=== PATIENT | male | born 1950 | race Caucasian/White ===

== ENCOUNTER 2021-06-23 12:11 | Emergency (ER) | payer OTHER ==
[~2021-06-23] VITALS: Ht 177.8 cm; Wt 115.2 kg
[~2021-06-23 12:11] MED LIST: ACCUNEB SO1.25 MG/1 INH; ASPIR 8181 MG PO; AVODART0.5 MG PO; CARVEDILOL6.25 M1 PO; CHILDREN'S NA10.8 ML NARES; CO Q-10100 MG PO; COZAAR 50 MG TA50 M1 PO; CYANOCOBAL1000 MCG/1 IM; FAMOTIDINE 20 M20 MG PO; FLONASE 0.05%50 MCG NARES; FOLIC ACID1 MG PO; IMDUR 30 MG TAB30 M1 PO; KETOCONAZOLE 2%30 GM TOP; LISINOPRIL5 MG PO; LIVALO2 MG PO; MILK OF MA400 MG/5 M PO; NITROGLYCERIN0.4 MG SUBLING; NORCO 10-325 T1 EACH PO; OMEPRAZOLE40 MG PO; PREVIDENT56 GM PO; PROAIR HFA8.5 GM; REFRESH OPTIVE1 EACH OP; REQUIP1 MG PO; SUPER THERAVIT1 EACH PO; SYMBICORT160 MCG/4. INH; TRAZODONE HCL100 MG PO; TYLENOL325 MG PO; VITAMIN B12-FO1 EAC1 PO; VITAMIN D31250 MC1 PO; XARELTO20 MG PO; ZETIA10 MG PO
[2021-06-23 12:53] LABS: ABSOLUTE NEUTROPHILS 3.4 thou/uL (1.4-8.2); BASOPHILS 0.6 % (0.0-2.0); EOSINOPHILS 8.1 % (0.0-3.0); HEMATOCRIT 42.3 % (42.0-52.0); HEMOGLOBIN 14.3 gm/dL (14.0-18.0); LYMPHOCYTES 18.4 % (24.0-44.0); MCH 32.5 pg (26.0-34.0); MCHC 33.8 g/dL (28.0-37.0); MONOCYTES 6.7 % (1.0-8.0); PLATELET COUNT 241 thou/uL (150-400); POLYS 66.2 % (36.0-66.0); RBC 4.41 mil/uL (4.50-6.00); RDW 13.5 % (10.5-14.5); WBC 5.1 thou/uL (4.0-11.0)
[2021-06-23 13:04] LABS: ANION GAP 7 mmol/L (7-16); BUN 15 mg/dL (7-18); CALCIUM 8.9 mg/dL (8.5-10.1); CHLORIDE 105 mmol/L (98-107); CO2 29 mmol/L (21-32); CREATININE 1.2 mg/dL (0.7-1.3); GLUCOSE 232 mg/dL (74-106); POTASSIUM 4.2 mmol/L (3.5-5.1); SODIUM 141 mmol/L (136-145)
[2021-06-23 13:07] LABS: APTT 33.1 Seconds (24.5-32.8); INR 1.11
[2021-06-23 13:13] LABS: ALBUMIN 3.6 g/dL (3.4-5.0); SGOT 30 U/L (15-37); SGPT 39 U/L (16-63); TOTAL BILIRUBIN 0.4 mg/dL (0.2-1.0); TOTAL PROTEIN 6.3 g/dL (6.4-8.2); TROPONIN-I <0.06 ng/mL (<0.06)
[2021-06-23 15:58] VITALS: BP 120/70
--- NOTE | 2021-06-24 12:17 | EKG ---
[address] [address] [place] [address] ELECTROCARDIOGRAM REPORT Name: ROSE MARIE HAYS DIEUDONNE Room #: [id number] Admission: 06/23/21 Attend Phys: Discharge: 06/23/21 Date of : 48 Report #: [id number] [facility] ED Test Date: 2021-06-23 Test Time: 12:36:59 Pat Name: ROSE MARIE HAYS Department: Room: Gender: M Director Of Strategic Sales: LUCINDA : 1950 Requested By: Joe Deluca Order Number: [id number] MD: Sergo Bledsoe Measurements Intervals [place] Rate: 67 P: 43 NJ: 212 QRS: -13 QRSD: 107 T: 20 QT: 526 QTc: 556 Interpretive Statements Sinus rhythm Borderline prolonged [place] interval Low voltage, extremity leads Prolonged QT interval Baseline wander in lead(s) V2,V3 No previous ECG available for comparison Electronically Signed On 06-24-2021 12:17:28 CDT by Sergo Bledsoe [email or web address] <ELECTRONICALLY SIGNED> By: Sergo Bledsoe MD 06/24/21 1217 D: [id number] Sergo Bledsoe MD /ALISHA
== END 2021-06-23 16:01 | disposition left against medical advice (07) ==
LOC: ER 12:11
PROVIDERS: Emergency Medicine
DX: R53.1 Weakness (principal); J45.909 Unspecified asthma, uncomplicated; I48.91 Unspecified atrial fibrillation; Z90.89 Acquired absence of other organs; Z79.899 Other long term (current) drug therapy; Z88.6 Allergy status to analgesic agent; Z88.1 Allergy status to other antibiotic agents; Z88.8 Allergy status to other drugs, medicaments and biological substances